=== PATIENT | female | born 1990 | race Caucasian/White ===

== ENCOUNTER 2019-10-02 08:09 | Emergency (ER) | payer MEDICARE, MEDICAID ==
[~2019-10-02] VITALS: Ht 170.2 cm; Wt 74.0 kg
[2019-10-02] MEDS ORDERED: FLUORESCEIN SODIUM 1MG/STRIP BOTHEYE ONE (09:30)
[2019-10-02] MEDS ORDERED: TETRACAINE 0.5% OPHTH DROPS 4ML BOTHEYE ONE (09:30)
[2019-10-02 10:05] VITALS: BP 128/88
== END 2019-10-02 10:07 | disposition home or self-care (01) ==
LOC: ER 08:09
DX: H10.9 Unspecified conjunctivitis (principal); Z88.6 Allergy status to analgesic agent
CPT/HCPCS: 99283

== ENCOUNTER 2023-02-07 12:39 | Emergency (ER) | payer MEDICARE, MEDICAID ==
[~2023-02-07] VITALS: Ht 170.2 cm; Wt 68.2 kg
[2023-02-07] MEDS ORDERED: ALBU18HF2 IH ×3 (17:02→17:33)
[2023-02-07 17:51] VITALS: BP 100/68
== END 2023-02-07 17:50 | disposition home or self-care (01) ==
LOC: ER 12:39
DX: R06.02 Shortness of breath (principal); Z88.8 Allergy status to other drugs, medicaments and biological substances
CPT/HCPCS: 71045; 99283

== ENCOUNTER 2024-10-11 13:42 | Emergency (ER) | payer MEDICARE, MEDICAID ==
[~2024-10-11] VITALS: Ht 172.7 cm; Wt 71.0 kg
[~2024-10-11 13:42] MED LIST: ALBU18HF2 IH
[2024-10-11 14:11] VITALS: O2SAT 99
[2024-10-11] MEDS: ZIPRASIDONE MESYLATE 20MG/VIAL IM ONE (14:11)
[2024-10-11] MEDS: MIDAZOLAM HCL 2 MG/2 ML VIAL IM ONE (14:11)
[2024-10-11 14:32] LABS: BASOPHILS % 1.2 % (0.0-2.0); EOSINOPHILS % 1.1 % (0.0-5.0); HEMATOCRIT. 39.5 % (36.0-48.0); HEMOGLOBIN. 13.3 g/dL (12.0-16.0); LYMPHOCYTES % 37.2 % (20.0-50.0); MEAN CORPUSCULAR HEMOGLOBIN 33.6 pg (28.0-32.0); MEAN CORPUSCULAR HGB CONC 33.6 g/dL (31.0-37.0); MEAN PLATELET VOLUME 7.3 fl (7.4-10.4); MONOCYTES % 5.1 % (2.0-8.0); NEUTROPHILS % 55.4 % (40.0-76.0); PLATELET 239 x1000/uL (130-400); RED BLOOD CELL COUNT 3.95 mill/uL (4.2-5.4); WHITE BLOOD COUNT 4.8 x1000/uL (4.5-11.0)
[2024-10-11 14:38] LABS: CHLORIDE 110 mEq/L (98-107); POTASSIUM 3.6 mEq/L (3.5-5.1); SODIUM 145 mEq/L (136-145)
[2024-10-11 14:39] LABS: CALCIUM 8.7 mg/dL (8.7-10.4); CARBON DIOXIDE 27 mEq/L (21-32)
[2024-10-11 14:43] LABS: HCG SCREEN NEGATIVE
[2024-10-11 14:44] LABS: CREATININE 0.7 mg/dL (0.6-1.0); GLUCOSE 93 mg/dL (70-105); INR 0.9; PROTHROMBIN TIME 10.6 sec (9.6-11.0); UREA NITROGEN BLOOD 14 mg/dL (9-23)
[2024-10-11 14:45] LABS: ETHANOL BLOOD 295 mg/dL (<10)
[2024-10-11 14:46] LABS: ACETAMINOPHEN < 2 ug/mL (10-30)
[2024-10-11 20:53] LABS: CLARITY URINE CLEAR (CLEAR); COLOR URINE YELLOW (YELLOW); GLUCOSE URINE NEGATIVE (NEGATIVE); KETONES URINE NEGATIVE (NEGATIVE); LEUKOCYTE ESTERASE URINE 2+ (NEGATIVE); NITRITE URINE NEGATIVE (NEGATIVE); OCCULT BLOOD URINE NEGATIVE (NEGATIVE); PROTEIN URINE NEGATIVE (NEGATIVE); SPECIFIC GRAVITY URINE 1.011 (1.005-1.030); UROBILINOGEN URINE 0.2 E.U./dL (0.2-1.0)
[2024-10-11 21:05] LABS: *AMPHETAMINES SCREEN URINE PRESUMPTIVE POSITIVE (NEGATIVE); *BARBITURATES SCREEN URINE NEGATIVE (NEGATIVE); *BENZODIAZEPINES SCREEN URINE PRESUMPTIVE POSITIVE (NEGATIVE); *COCAINE SCREEN URINE NEGATIVE (NEGATIVE); CANNABINOID URINE SCREEN PRESUMPTIVE POSITIVE (NEGATIVE); ECSTASY MDMA SCREEN URINE NEGATIVE (NEGATIVE); METHADONE URINE SCREEN NEGATIVE (NEGATIVE); OPIATES URINE SCREEN NEGATIVE (NEGATIVE); PHENCYCLIDINE URINE SCREEN NEGATIVE (NEGATIVE)
[2024-10-11 21:15] LABS: BACTERIA URINE 1+; RBC URINE 0-2 /hpf (0-2); SQUAMOUS EPITHELIAL CELL URINE FEW /lpf (RARE/1+)
[2024-10-11] MEDS ORDERED: NITR-87 MT (22:02)
[2024-10-11 23:22] VITALS: BP 109/68; PULSE 69; RESP 18; TEMP 37.11408; O2SAT 99
[2024-10-12] MEDS ORDERED: NITROFURANTOIN 100MG M/M CAPSULE PO SCH (09:00)
== END 2024-10-12 00:12 | disposition home or self-care (01) ==
LOC: ER 13:53
DX: G92.9 Unspecified toxic encephalopathy (principal); F19.10 Other psychoactive substance abuse, uncomplicated; Z98.890 Other specified postprocedural states
CPT/HCPCS: 80305; 80048; 81003; 80307; 80329; 80320; 84703; 85025; 85610; 36415; 96372; 99285; J2250; J3486; G0480